=== PATIENT | female | born 1990 | race Caucasian/White ===

== ENCOUNTER → 2017-12-03 | Outpatient (CLI) | payer MEDICAID | LOC: FIMAGING 13:37 | PROVIDERS: ATTEND Family Medicine | DX: O30.042 Twin pregnancy, dichorionic/diamniotic, second trimester (principal); Z3A.12 12 weeks gestation of pregnancy ==

== ENCOUNTER → 2018-01-01 | Outpatient (CLI) | payer MEDICAID | LOC: FIMAGING 12:58 | PROVIDERS: ATTEND Family Medicine | DX: O30.042 Twin pregnancy, dichorionic/diamniotic, second trimester (principal); Z3A.16 16 weeks gestation of pregnancy ==

== ENCOUNTER → 2018-01-15 | Outpatient (CLI) | payer MEDICAID | LOC: FIMAGING 09:57 | PROVIDERS: ATTEND Family Medicine | DX: O30.042 Twin pregnancy, dichorionic/diamniotic, second trimester (principal); Z3A.18 18 weeks gestation of pregnancy ==

== ENCOUNTER → 2018-01-29 | Outpatient (CLI) | payer MEDICAID | LOC: FIMAGING 07:35 | PROVIDERS: ATTEND Family Medicine | DX: O30.042 Twin pregnancy, dichorionic/diamniotic, second trimester (principal); Z3A.20 20 weeks gestation of pregnancy ==

== ENCOUNTER → 2018-03-25 | Outpatient (CLI) | payer MEDICAID | LOC: FIMAGING 13:00 | PROVIDERS: ATTEND Family Medicine | DX: O30.042 Twin pregnancy, dichorionic/diamniotic, second trimester (principal); Z3A.28 28 weeks gestation of pregnancy ==